=== PATIENT | female | born 1955 | race Caucasian/White ===

== ENCOUNTER 2018-02-28 18:07 | Emergency (ER) | payer SELFPAY ==
[2018-02-28 18:14] VITALS: BP 173/109
[2018-02-28] MEDS ORDERED: CEPHALEXIN 500 MG CAP PO ONE (18:32)
[2018-02-28] MEDS ORDERED: SULFAMETHOX/TMP 800/160 MG 1 TAB PO ONE (18:32)
--- NOTE | 2018-02-28 18:34 | EDPHY ---
H & P Stated Complaint: VICKI LE wounds Time Seen by Provider: 02/28/18 18:27 HPI/ROS: CHIEF COMPLAINT: Wound infection HISTORY OF PRESENT ILLNESS: The patient is a 62-year-old female who lives in [place] and owns a landscape business. She has several circular ulcerated wounds to both shins and shoulders. She denies picking them. She states that she 1st noticed them on Wednesday. She works as a [employer] consultant and thought that she may have scratched or cut herself or gotten bitten. No fluctuance. No joint swelling or deformity. No fever. REVIEW OF SYSTEMS: Constitutional: denies: chills, fever, recent illness, recent injury EENTM: denies: blurred vision, double vision, nose congestion Respiratory: denies: cough, shortness of breath Cardiac: denies: chest pain, irregular heart rate, lightheadedness, palpitations Gastrointestinal/Abdominal: denies: abdominal pain, diarrhea, nausea, vomiting, blood streaked stools Genitourinary: denies: dysuria, frequency, hematuria, pain Musculoskeletal: denies: joint pain, muscle pain Skin: Skin infection Neurological: denies: headache, numbness, paresthesia, tingling, dizziness, weakness Hematologic/Lymphatic: denies: blood clots, easy bleeding, easy bruising Immunologic/allergic: denies: HIV/AIDS, transplant EXAM: GENERAL: Well-appearing, well-nourished and in no acute distress. HEAD: Atraumatic, normocephalic. EYES: Pupils equal round and reactive to light, extraocular movements intact, sclera anicteric, conjunctiva are normal. ENT: TMs normal, nares patent, oropharynx clear without exudates. Moist mucous membranes. NECK: Normal range of motion, supple without lymphadenopathy or JVD. LUNGS: Breath sounds clear to auscultation bilaterally and equal. No wheezes rales or rhonchi. HEART: Regular rate and rhythm without murmurs, rubs or gallops. ABDOMEN: Soft, nontender, normoactive bowel sounds. No guarding, no rebound. No masses appreciated. BACK: No CVA tenderness, no spinal tenderness, step-offs or deformities EXTREMITIES: Normal range of motion, no pitting or edema. No clubbing or cyanosis. NEUROLOGICAL: Cranial nerves II through XII grossly intact. Normal speech, normal gait. 5/5 strength, normal movement in all extremities, normal sensation PSYCH: Normal mood, normal affect. SKIN: Several 1 cm ulcerated skin lesions with eschar, surrounding cellulitis on each 1. Small amount of purulence from right medial ankle sent for cultures. Source: Patient Exam Limitations: No limitations - Personal History Current Tetanus/Diphtheria Vaccine: Unsure Current Tetanus Diphtheria and Acellular Pertussis (TDAP): Unsure - Medical/Surgical History Hx Asthma: No Hx Chronic Respiratory Disease: No Hx Diabetes: No Hx Cardiac Disease: No Hx Renal Disease: No Hx Cirrhosis: No Hx Alcoholism: No Hx HIV/AIDS: No Hx Splenectomy or Spleen Trauma: No Other PMH: pacreatitis, spinal meningitis x3, - Family History Significant Family History: No pertinent family hx - Social History Smoking Status: Former smoker Alcohol Use: Heavy Drug Use: None Constitutional: Initial Vital Signs Temperature (C) 37.1 C 02/28/18 18:12 Heart Rate 145 H 02/28/18 18:12 Respiratory Rate 16 02/28/18 18:12 Blood Pressure 173/109 H 02/28/18 18:12 O2 Sat (%) 95 02/28/18 18:12 O2 Delivery Mode Room Air Allergies/Adverse Reactions: codeine Allergy (Verified 02/28/18 18:11) Penicillins Allergy (Verified 02/28/18 18:11) Home Medications: Medication Instructions Recorded Cephalexin [Keflex] 500 mg PO TID #21 cap 02/28/18 Sulfamethox/Tmp 800/160 mg 1 tab PO BID #14 tab 02/28/18 [Bactrim Ds] Medical Decision Making ED Course/Re-evaluation: The patient has several small wound infections. No signs of abscess or sepsis. I will start her on oral antibiotics. I discouraged picking. She understands and agrees with this plan but is concerned about how she is going to get a ride back to [place]. 655 the patient is angry because she was under the assumption she would get IV antibiotics and admission. This is clearly not necessary. Her symptoms are not severe and do not warrant inpatient admission at this time. Single dose IV antibiotics have not been shown to be effective compared to oral antibiotics. She is concerned because she does not have a ride back to [place]. We will have information security her out. Differential Diagnosis: Partial list of the Differential diagnosis considered include but were not limited to; skin infection, peaking, wound infections and although unlikely based on the history and physical exam, I also considered abscess, sepsis. - Data Points Medications Given: Discontinued Medications Cephalexin HCl (Keflex) 500 mg PO EDNOW ONE PRN Reason: Protocol Stop: 02/28/18 18:33 Last Admin: 02/28/18 19:24 Dose: 500 mg Trimethoprim/Sulfamethoxazole (Bactrim Ds) 1 ea PO EDNOW ONE PRN Reason: Protocol Stop: 02/28/18 18:33 Last Admin: 02/28/18 19:24 Dose: 1 ea Departure - Departure Disposition: Home, Routine, Self-Care Clinical Impression: Wound infection Cellulitis Qualifiers: Site of cellulitis: unspecified site Qualified Code(s): L03.90 - Cellulitis, unspecified Condition: Fair Instructions: Wound Infection (ED), Cellulitis (ED) Referrals: NONE *PRIMARY CARE P,. [Primary Care Provider] - As per Instructions Prescriptions: Cephalexin [Keflex] 500 mg PO TID #21 cap Sulfamethox/Tmp 800/160 mg [Bactrim Ds] 1 tab PO BID #14 tab
== END 2018-02-28 19:30 | disposition home or self-care (01) ==
DX: L03.115 Cellulitis of right lower limb (principal); Z87.891 Personal history of nicotine dependence